=== PATIENT | male | born 1995 | race African-American/Black ===

== ENCOUNTER 2018-10-15 19:51 | Emergency (ER) | payer SELFPAY ==
[2018-10-15 19:59] VITALS: BP 135/73
--- NOTE | 2018-10-15 20:17 | ER Document Report ---
ED General - General Chief Complaint: Shortness Of Breath Stated Complaint: BLOOD PRESSURE CONCERNS, NAUSEA Time Seen by Provider: 10/15/18 20:06 Mode of Arrival: Ambulatory Information source: Patient Notes: Chief complaint: Left side of the neck pain and headache elevated blood pressure History of complain:( obtained from----patient) 23 years old male presents today with headache for the last few days. Associated with left-sided neck pain. She works in [employer] carrying lots of objects. He has a history of hypertension but not been taking any medications. Onset: As above Duration: Gradual Severity: Mild to moderate Quality: Sharp Context: As above Exacerbating factor and relieving factors: REVIEW OF SYSTEMS: CONSTITUTIONAL : Denies fever, chills, or sweats. Denies recent illness. EENT: Denies eye, ear, throat, or mouth pain or symptoms. Denies nasal or sinus congestion or discharge. Denies throat, tongue, or mouth swelling or difficulty swallowing. CARDIOVASCULAR: Denies chest pain. Denies palpitations or racing or irregular heart beat. Denies ankle edema. RESPIRATORY: Denies cough, cold, or chest congestion. Denies shortness of breath, difficulty breathing, or wheezing. GASTROINTESTINAL: Denies distention. Denies nausea, vomiting, or diarrhea. Denies blood in vomitus, stools, or per rectum. Denies black, tarry stools. Denies constipation. GENITOURINARY: Denies difficulty urinating, painful urination, burning, frequency, blood in urine, or discharge. FEMALE GENITOURINARY: Denies vaginal bleeding, heavy or abnormal periods, irregular periods. Denies vaginal discharge or odor. MUSCULOSKELETAL: Denies back or neck pain or stiffness. Denies joint pain or swelling. SKIN: Denies rash, lesions or sores. HEMATOLOGIC : Denies easy bruising or bleeding. LYMPHATIC: Denies swollen, enlarged glands. NEUROLOGICAL: Denies confusion or altered mental status. Denies passing out or loss of consciousness. Denies dizziness or lightheadedness. Denies headache. Denies weakness or paralysis or loss of use of either side. Denies problems with gait or speech. Denies sensory loss, numbness, or tingling. Denies seizures. PSYCHIATRIC: Denies anxiety or stress. Denies depression, suicidal ideation, or homicidal ideation. ALL OTHER SYSTEMS REVIEWED AND NEGATIVE. PHYSICAL EXAMINATION: GENERAL: Well-appearing, well-nourished and in no acute distress. HEAD: Atraumatic, normocephalic. EYES: Pupils equal round and reactive to light, extraocular movements intact, conjunctiva are normal. ENT: Nares patent, oropharynx clear without exudates. Moist mucous membranes. NECK: Normal range of motion, supple without lymphadenopathy Left upper paraspinal muscle tenderness noted on palpation LUNGS: Breath sounds clear to auscultation bilaterally and equal. No wheezes rales or rhonchi. HEART: Regular rate and rhythm without murmurs ABDOMEN: Soft, nontender, nondistended abdomen. No guarding, no rebound. No masses appreciated. Examination of genitals-deferred Musculoskeletal: Normal range of motion, no pitting or edema. No cyanosis. NEUROLOGICAL: Cranial nerves grossly intact. Normal speech, normal gait. Normal sensory, motor exams PSYCH: Normal mood, normal affect. SKIN: Warm, Dry, normal turgor, no rashes or lesions noted. Dictation was performed using [employer] voice recognition software TRAVEL OUTSIDE OF THE [place] IN LAST 30 DAYS: No - HPI Notes: Dictated Past Medical History - Social History Smoking Status: Current Every Day Smoker Frequency of alcohol use: Rare Drug Abuse: None Lives with: Family Family History: Reviewed & Not Pertinent Review of Systems - Review of Systems Notes: Dictated Physical Exam - Vital signs Vitals: Temp Pulse Resp BP Pulse Ox 98.8 F 71 16 135/73 H 100 10/15/18 19:54 10/15/18 19:54 10/15/18 19:54 10/15/18 19:54 10/15/18 19:54 - Notes Notes: Dictated Course - Vital Signs Vital signs: Temp Pulse Resp BP Pulse Ox 98.8 F 71 16 135/73 H 100 10/15/18 19:54 10/15/18 19:54 10/15/18 19:54 10/15/18 19:54 10/15/18 19:54 Discharge - Discharge Clinical Impression: Elevated blood pressure reading Cervical sprain Qualifiers: Encounter type: initial encounter Qualified Code(s): S13.9XXA - Sprain of joints and ligaments of unspecified parts of neck, initial encounter Headache Qualifiers: Headache type: unspecified Headache chronicity pattern: acute headache Intractability: not intractable Qualified Code(s): R51 - Headache Condition: Fair Disposition: HOME, SELF-CARE Instructions: Headache ([facility]), Sprain ([facility]) Prescriptions: Baclofen [Baclofen 10 mg Tablet] 10 mg PO TID #30 tab Lisinopril [Zestril] 2.5 mg PO DAILY #30 tablet Naproxen Sodium [Naprelan] 500 mg PO BID #30 tablet.sa
== END 2018-10-15 20:22 | disposition home or self-care (01) ==
LOC: ER 19:51
DX: S13.9XXA Sprain of joints and ligaments of unspecified parts of neck, initial encounter (principal); R51 Headache; I10 Essential (primary) hypertension; R06.2 Wheezing; M54.2 Cervicalgia; R03.0 Elevated blood-pressure reading, without diagnosis of hypertension; X58.XXXA Exposure to other specified factors, initial encounter; F17.200 Nicotine dependence, unspecified, uncomplicated
CPT/HCPCS: 99284

== ENCOUNTER 2018-12-06 15:10 | Emergency (ER) | payer SELFPAY ==
[2018-12-06] MEDS ORDERED: VANCOMYCIN HCL INJ 1000 MG VIAL IV ONE (16:39)
[2018-12-06] MEDS ORDERED: ACETAMINOPHEN 325 MG TABLET PO ONE (16:39)
[2018-12-06] MEDS ORDERED: FENTANYL CITRATE INJ/PF 100 MCG/2 ML AMPUL IV ONE (16:41)
[2018-12-06] MEDS ORDERED: NORMAL SALINE 1000 ML 1,000 ML IV ONE (16:42)
--- NOTE | 2018-12-06 16:42 | ER Document Report ---
ED Fever - General Chief Complaint: Fever Stated Complaint: FEVER Time Seen by Provider: 12/06/18 16:34 Primary Care Provider: [facility] [Provider Group] - Follow up as needed [facility] [Provider Group] - Follow up as needed Information source: Patient Notes: Patient presents complaining of fever for the past 2 days with thoracic spinal tenderness. Patient does report some chest discomfort although states that that pain has improved today. Patient denies any sore throat or ear pain. Patient states he had a headache yesterday but no headache today. Patient denies any neck or low back tenderness. TRAVEL OUTSIDE OF THE [place] IN LAST 30 DAYS: No - HPI Onset: Other - 2 days Onset/Duration: Worse Quality of pain: Achy, Sharp Pain Level: 4 Context: Cough Associated symptoms: Body/muscle aches, Chest pain, Nonproductive cough, Fever, Headache - yesterday, none today, Nausea, Other - spinal back pain Similar symptoms previously: No Recently seen / treated by doctor: No - Related Data Allergies/Adverse Reactions: No Known Allergies Allergy (Unverified 12/06/18 15:15) Past Medical History - General Information source: Patient - Social History Smoking Status: Current Every Day Smoker Chew tobacco use (# tins/day): No Smoking Education Provided: Yes Frequency of alcohol use: None Drug Abuse: None Occupation: [employer] Lives with: Spouse/Significant other Family History: Reviewed & Not Pertinent Patient has suicidal ideation: No Patient has homicidal ideation: No - Past Medical History Cardiac Medical History: Reports: Hx Hypertension Renal/ Medical History: Denies: Hx Peritoneal Dialysis Surgical Hx: Negative Review of Systems - Review of Systems Constitutional: Chills, Fever EENT: No symptoms reported Cardiovascular: Chest pain Respiratory: Cough Gastrointestinal: No symptoms reported. denies: Vomiting Genitourinary: No symptoms reported. denies: Dysuria Male Genitourinary: No symptoms reported Musculoskeletal: Back pain - thoracic spinal pain Skin: No symptoms reported. denies: Rash Hematologic/Lymphatic: No symptoms reported Neurological/Psychological: No symptoms reported. denies: Confusion, Weakness, Headaches Physical Exam - Vital signs Vitals: Temp Pulse Resp BP Pulse Ox 100.5 F H 85 18 145/78 H 100 12/06/18 15:18 12/06/18 15:18 12/06/18 15:18 12/06/18 15:18 12/06/18 15:18 - General General appearance: Appears well, Alert In distress: None - HEENT Head: Normocephalic, Atraumatic Eyes: Normal Conjunctiva: Normal Pupils: PERRL Ears: Normal External canal: Normal Tympanic membrane: Normal Mouth/Lips: Normal Mucous membranes: Normal Pharynx: Normal. No: Erythema, Exudate Neck: Normal, Supple. No: Lymphadenopathy, Meningismus - Respiratory Respiratory status: No respiratory distress Chest status: Nontender Breath sounds: Normal. No: Rales, Rhonchi, Stridor, Wheezing Chest palpation: Normal - Cardiovascular Rhythm: Regular Heart sounds: S1 appreciated, S2 appreciated Murmur: No - Abdominal Inspection: Normal Distension: No distension Bowel sounds: Normal Tenderness: Nontender Organomegaly: No organomegaly - Back Back: Vertebra tenderness - Patient with thoracic spinal tenderness and a T3 through 9 location. No: Deformity/step-off, CVA tenderness Notes: No thoracic paraspinal muscle tenderness - Extremities General upper extremity: Normal inspection, Nontender, Normal strength General lower extremity: Normal inspection, Nontender, Normal strength - Neurological Neuro grossly intact: Yes Cognition: Normal Nery Coma Scale Eye Opening: Spontaneous Nery Coma Scale Verbal: Oriented [place] Coma Scale Motor: Obeys Commands Nery Coma Scale Total: 15 - Psychological Associated symptoms: Normal affect, Normal mood - Skin Skin Temperature: Warm Skin Moisture: Dry Skin Color: Normal Course - Re-evaluation Re-evalutation: 12/06/18 16:[address] Jimenez who recommends obtaining labs, cultures sed rate CRP as well as MRI. States that antibiotics should include vancomycin. 12/06/18 20:42 Patient feeling much better, denies any back pain or headache pain at this time. Patient is requesting to be discharged home. Consulted with Dr. Gutierrez regarding patient diagnostic test results. Patient without any findings worrisome for epidural abscess or osteomyelitis. Patient without any meningismus, no concern for encephalitis at this time. Suspect patient with likely viral illness. Recommends treating symptomatically [id number]. No antibiotics advised at this time. - Vital Signs Vital signs: Temp Pulse Resp BP Pulse Ox 98.6 F 76 16 128/55 H 100 12/06/18 20:44 12/06/18 20:44 12/06/18 20:44 12/06/18 20:44 12/06/18 20:44 - Laboratory Result Diagrams: 12/06/18 17:25 12/06/18 17:25 Laboratory results interpreted by me: 12/06/18 12/06/18 17:25 17:25 WBC 3.7 L RDW 14.1 H Potassium 3.5 L BUN 6 L Labs- Entire Visit 12/06/18 12/06/18 12/06/18 17:25 17:25 17:25 WBC 3.7 L RBC 5.00 Hgb 13.8 Hct 41.6 MCV 83 MCH 27.6 MCHC 33.2 RDW 14.1 H Plt Count 186 Total Counted 100 Seg Neutrophils % Not Reportable Seg Neuts % (Manual) 60 Lymphocytes % Not Reportable Lymphocytes % (Manual) 35 Monocytes % Not Reportable Monocytes % (Manual) 5 Eosinophils % Not Reportable Eosinophils % (Manual) 0 Basophils % Not Reportable Basophils % (Manual) 0 Absolute Neutrophils Not Reportable Abs Neuts (Manual) 2.2 Absolute Lymphocytes Not Reportable Abs Lymphs (Manual) 1.3 Absolute Monocytes Not Reportable Abs Monocytes (Manual) 0.2 Absolute Eosinophils Not Reportable Absolute Eos (Manual) 0.0 Absolute Basophils Not Reportable Abs Basophils (Manual) 0.0 Large Platelets PRESENT Platelet Comment ADEQUATE Poikilocytosis SLIGHT Anisocytosis SLIGHT ESR 8 Sodium 139.6 Potassium 3.5 L Chloride 100 Carbon Dioxide 29 Anion Gap 11 BUN 6 L Creatinine 1.02 Est GFR ( Amer) > 60 Est GFR (Non-Af Amer) > 60 Glucose 90 Calcium 8.6 Magnesium 1.8 Total Bilirubin 0.3 Direct Bilirubin 0.2 Neonat Total Bilirubin Not Reportable Neonat Direct Bilirubin Not Reportable Neonat Indirect Bili Not Reportable AST 29 ALT 29 Alkaline Phosphatase 59 C-Reactive Protein < 5.0 Total Protein 7.2 Albumin 4.5 Influenza A (Rapid) Influenza B (Rapid) 12/06/18 18:05 WBC RBC Hgb Hct MCV MCH MCHC RDW Plt Count Total Counted Seg Neutrophils % Seg Neuts % (Manual) Lymphocytes % Lymphocytes % (Manual) Monocytes % Monocytes % (Manual) Eosinophils % Eosinophils % (Manual) Basophils % Basophils % (Manual) Absolute Neutrophils Abs Neuts (Manual) Absolute Lymphocytes Abs Lymphs (Manual) Absolute Monocytes Abs Monocytes (Manual) Absolute Eosinophils Absolute Eos (Manual) Absolute Basophils Abs Basophils (Manual) Large Platelets Platelet Comment Poikilocytosis Anisocytosis ESR Sodium Potassium Chloride Carbon Dioxide Anion Gap BUN Creatinine Est GFR ( Amer) Est GFR (Non-Af Amer) Glucose Calcium Magnesium Total Bilirubin Direct Bilirubin Neonat Total Bilirubin Neonat Direct Bilirubin Neonat Indirect Bili AST ALT Alkaline Phosphatase C-Reactive Protein Total Protein Albumin Influenza A (Rapid) NEGATIVE Influenza B (Rapid) NEGATIVE - Diagnostic Test Radiology reviewed: Reports reviewed Discharge - Discharge Clinical Impression: Viral illness, Hypokalemia Fever Qualifiers: Fever type: unspecified Qualified Code(s): R50.9 - Fever, unspecified Back pain Qualifiers: Back pain location: thoracic back pain Chronicity: acute Back pain laterality: midline Qualified Code(s): M54.6 - Pain in thoracic spine Condition: Stable Disposition: HOME, SELF-CARE Instructions: Acetaminophen, Fever ([facility]), Hypokalemia ([facility]), Viral Syndrome ([facility]) Additional Instructions: Return immediately for any new or worsening symptoms Followup with your primary care provider, call tomorrow to make a followup appointment Take your baclofen that you have at home as prescribed. May take Tylenol [id number] as needed for fever and pain relief Prescriptions: Benzonatate [Tessalon Perle 100 mg Capsule] 100 mg PO Q8HP PRN #20 cap PRN Reason: Lidocaine [Lidoderm 5% (700 mg) Transdermal Patch] 1 patch TP DAILY PRN #7 adh..patch PRN Reason: Forms: Smoking Cessation Education, Return to Work Referrals: [facility] [Provider Group] - Follow up as needed [facility] [Provider Group] - Follow up as needed
--- NOTE | 2018-12-06 17:06 | RADIOLOGY REPORT (SQ) ---
EXAM DESCRIPTION: CHEST 2 VIEWS COMPLETED DATE/TIME: 12/06/2018 4:56 pm REASON FOR STUDY: chest pain, thoracic spinal pain COMPARISON: None. EXAM PARAMETERS: NUMBER OF VIEWS: two views TECHNIQUE: Digital Frontal and Lateral radiographic views of the chest acquired. RADIATION DOSE: NA LIMITATIONS: none FINDINGS: LUNGS AND PLEURA: No opacities, masses or pneumothorax. No pleural effusion. MEDIASTINUM AND HILAR STRUCTURES: No masses or contour abnormalities. HEART AND VASCULAR STRUCTURES: Heart normal size. No evidence for failure. BONES: No acute findings. HARDWARE: None in the chest. OTHER: No other significant finding. IMPRESSION: NO ACUTE RADIOGRAPHIC FINDING IN THE CHEST. TECHNICAL DOCUMENTATION: JOB ID: [id number] [employer]- All Rights Reserved Reading location - IP/workstation name: [email or web address]
[2018-12-06 17:50] LABS: HEMATOCRIT 41.6 % (37.9-51.0); HEMOGLOBIN 13.8 g/dL (13.5-17.0); MEAN CORPUSCULAR HEMOGLOBIN 27.6 pg (27.0-33.4); MEAN CORPUSCULAR HGB CONC 33.2 g/dL (32.0-36.0); MEAN CORPUSCULAR VOLUME 83 fl (80-97); PLATELET COUNT 186 10^3/uL (150-450); RED CELL DISTRIBUTION WIDTH 14.1 % (11.5-14.0); WHITE BLOOD COUNT 3.7 10^3/uL (4.0-10.5)
[2018-12-06 18:09] LABS: ALANINE AMINOTRANSFERASE 29 U/L (21-72); ALBUMIN 4.5 g/dL (3.5-5.0); ALKALINE PHOSPHATASE 59 U/L (38-126); ANION GAP 11 (5-19); ASPARTATE AMINO TRANSFERASE 29 U/L (17-59); BILIRUBIN,DIRECT 0.2 mg/dL (0.0-0.4); BILIRUBIN,TOTAL 0.3 mg/dL (0.2-1.3); BLOOD UREA NITROGEN 6 mg/dL (7-20); CALCIUM 8.6 mg/dL (8.4-10.2); CARBON DIOXIDE 29 mmol/L (22-30); CHLORIDE 100 mmol/L (98-107); GLUCOSE 90 mg/dL (75-110); POTASSIUM 3.5 mmol/L (3.6-5.0); SODIUM 139.6 mmol/L (137-145); TOTAL PROTEIN 7.2 g/dL (6.3-8.2)
[2018-12-06 18:11] LABS: C-REACTIVE PROTEIN < 5.0 mg/L (<10.0)
[2018-12-06 18:33] LABS: ERYTHROCYTE SEDIMENTATION RATE 8 mm/hr (0-15)
[2018-12-06 18:41] LABS: A TYPE INFLUENZA AG NEGATIVE (NEGATIVE); B INFLUENZA AG NEGATIVE (NEGATIVE)
[2018-12-06 18:46] LABS: ABSOLUTE LYMPHOCYTES# (MANUAL) 1.3 10^3/uL (0.5-4.7); ABSOLUTE MONOCYTES # (MANUAL) 0.2 10^3/uL (0.1-1.4); ABSOLUTE NEUTROPHILS# (MANUAL) 2.2 10^3/uL (1.7-8.2); BASOPHILS % (MANUAL) 0 % (0-2); EOSINOPHILS % (MANUAL) 0 % (0-6); LYMPHOCYTES % (MANUAL) 35 % (13-45); MONOCYTES % (MANUAL) 5 % (3-13); SEGMENTED NEUTROPHILS % (MAN) 60 % (42-78); TOTAL CELLS COUNTED 100
[2018-12-06 18:48] LABS: POIKILOCYTOSIS SLIGHT
[2018-12-06] MEDS ORDERED: POTASSIUM CHLORIDE 10 MEQ CAPSULE.ER PO ONE (18:48)
[2018-12-06 18:49] LABS: ANISOCYTOSIS SLIGHT; PLATELET COMMENT ADEQUATE; PLATELET LARGE PRESENT
--- NOTE | 2018-12-06 20:14 | RADIOLOGY REPORT (SQ) ---
MR THORACIC SPINE WITHOUT THEN WITH IV CONTRAST HISTORY: Fever. Back pain. COMPARISON: None. TECHNIQUE: Multiplanar, multisequence MR imaging of the thoracic spine was performed without and with the administration of intravenous gadolinium. FINDINGS: The visualized spinal cord is of normal caliber and signal intensity. No abnormal enhancement is identified. The visualized bone marrow is normal. The alignment of the thoracic spine is normal on these supine, neutral images. No disc protrusion throughout the thoracic spine. No canal or foraminal narrowing throughout the thoracic spine. IMPRESSION: No evidence of compression fracture or epidural abscess.
[2018-12-06 20:53] VITALS: BP 128/55
== END 2018-12-06 20:53 | disposition home or self-care (01) ==
LOC: ER 15:10
DX: B34.9 Viral infection, unspecified (principal); E87.6 Hypokalemia; R50.9 Fever, unspecified; M54.6 Pain in thoracic spine; R07.9 Chest pain, unspecified; R51 Headache; M79.10 Myalgia, unspecified site; R05 Cough; R11.0 Nausea; M54.9 Dorsalgia, unspecified; F17.200 Nicotine dependence, unspecified, uncomplicated; I10 Essential (primary) hypertension
CPT/HCPCS: 36415; 83735; 85025; 85652; 86140; 80053; 87804; 72157; 71046; A9576; J3010; J7030; J3370; 96365; 96366; 96375; 99284